=== PATIENT | male | born 1940 | race Caucasian/White ===

== ENCOUNTER 2021-03-30 07:22 | Day surgery (SDC) | payer MEDICARE, OTHER, SELFPAY ==
--- NOTE | 2021-03-25 12:24 | MHC.SHP ---
Pre-Procedural Eval Section A The patient is an INPATIENT: No The History & Physical has been completed within 30 days and I have reviewed it.: Yes Section B Chief Complaint: Cataract Right Eye Plan Diagnosis/Plan: Unchanged I have reviewed the history and physical and performed a pertinent physical examination on my patient. No changes have occurred unless specified.
[2021-03-25 12:27] VITALS: BMI 38.7
[2021-03-25 12:32] VITALS: BMI 38.7
--- NOTE | 2021-03-27 09:19 | P.CONAN_ITS ---
Documented by User: Hollie Zenaida 03/27/21 09:25 HPI - Anesthesia Eval Consult details Narrative: 80yo M for Right Cataract Extraction IOL Insertion No prev cataract on record PCP cleared Coumadin for h/o DVT [facility] Past Medical History Medical History (Updated 03/30/21 @ 08:15 by Diya Florian) COVID-19 vaccine series completed Diabetes Gout Hx of deep venous thrombosis Hx of renal calculi Low back pain Peripheral neuropathy Status post fall Surgical History Surgical History (Updated 03/30/21 @ 08:14 by Diya Florian) Hx of colonoscopy S/P vasectomy Social History Social History Smoking Status: Never smoker Use of substances other than those prescribed or required for medical reasons: No Have you been hit, kicked, punched, or otherwise hurt by someone within the past year? If so, by whom?: No Advance Directives: No Advance Directives Information Provided: No Advance Directives on File: No Meds Allergies Allergy/AdvReac Type Severity Reaction Status Date / Time cephalexin Allergy Rash Verified 03/27/21 09:58 duloxetine Allergy Rash Verified 03/27/21 09:58 niacin Allergy Muscle Pain Verified 03/27/21 09:58 gabapentin AdvReac Depression Verified 03/27/21 09:58 hydralazine AdvReac Blurry Verified 03/27/21 09:58 Vision pregabalin [From Lyrica] AdvReac Dizziness Verified 03/27/21 09:58 Qpwdsok-Tvq-Nta Reductase AdvReac Unknown Verified 03/25/21 12:27 Inhibitor Home Medications Medication Instructions Recorded Confirmed Last Taken Type alirocumab [Praluent Pen] mg SUBCUT 03/27/21 Unknown History amlodipine 1 tab PO DAILY 03/27/21 03/30/21 03/30/21 06:00 History cholecalciferol (vitamin D3) 1 cap PO DAILY 03/27/21 03/27/21 Unknown History colchicine 0.6 mg PO 03/27/21 Unknown History cyanocobalamin (vitamin B-12) 0.5 tab PO DAILY 03/27/21 03/27/21 Unknown History [Vitamin B-12] furosemide 1 tab PO DAILY 03/27/21 03/27/21 Unknown History lisinopril 1 tab PO DAILY 03/27/21 03/30/21 03/30/21 06:00 History 40 mg metformin 1 tab PO BID 03/27/21 03/27/21 Unknown History metoprolol tartrate 1 tab PO BID 03/27/21 03/30/21 03/30/21 06:00 History 50 mg oxycodone-acetaminophen 1 tab PO DAILY PRN 03/27/21 03/27/21 Unknown History warfarin PO 03/27/21 Unknown History Exam Exam Date and Time: March 27, [id number] Height,Weight and Vital Signs: Height 5 ft 6 in Weight 108.862 kg Assessment and Plan Assessment Anesthesia Assessment: Chart Reviewed Documented by User: Diya Florian 03/30/21 08:35 [facility] Past Medical History Medical History (Updated 03/30/21 @ 08:15 by Diya Florian) COVID-19 vaccine series completed Diabetes Gout Hx of deep venous thrombosis Hx of renal calculi Low back pain Peripheral neuropathy Status post fall Family History Family history of problems with anesthesia: No Surgical History Surgical History (Updated 03/30/21 @ 08:14 by Diya Florian) Hx of colonoscopy S/P vasectomy History of Problems with Anesthesia: No Social History Social History Smoking Status: Never smoker Use of substances other than those prescribed or required for medical reasons: No Have you been hit, kicked, punched, or otherwise hurt by someone within the past year? If so, by whom?: No Advance Directives: No Advance Directives Information Provided: No Advance Directives on File: No Meds Allergies Allergy/AdvReac Type Severity Reaction Status Date / Time cephalexin Allergy Rash Verified 03/27/21 09:58 duloxetine Allergy Rash Verified 03/27/21 09:58 niacin Allergy Muscle Pain Verified 03/27/21 09:58 gabapentin AdvReac Depression Verified 03/27/21 09:58 hydralazine AdvReac Blurry Verified 03/27/21 09:58 Vision pregabalin [From Lyrica] AdvReac Dizziness Verified 03/27/21 09:58 Nodbjrs-Exd-Qwf Reductase AdvReac Unknown Verified 03/25/21 12:27 Inhibitor Home Medications Medication Instructions Recorded Confirmed Last Taken Type alirocumab [Praluent Pen] mg SUBCUT 03/27/21 Unknown History amlodipine 1 tab PO DAILY 03/27/21 03/30/21 03/30/21 06:00 History cholecalciferol (vitamin D3) 1 cap PO DAILY 03/27/21 03/27/21 Unknown History colchicine 0.6 mg PO 03/27/21 Unknown History cyanocobalamin (vitamin B-12) 0.5 tab PO DAILY 03/27/21 03/27/21 Unknown History [Vitamin B-12] furosemide 1 tab PO DAILY 03/27/21 03/27/21 Unknown History lisinopril 1 tab PO DAILY 03/27/21 03/30/21 03/30/21 06:00 History 40 mg metformin 1 tab PO BID 03/27/21 03/27/21 Unknown History metoprolol tartrate 1 tab PO BID 03/27/21 03/30/21 03/30/21 06:00 History 50 mg oxycodone-acetaminophen 1 tab PO DAILY PRN 03/27/21 03/27/21 Unknown History warfarin PO 03/27/21 Unknown History Exam Height,Weight and Vital Signs: Vital Signs Temp Pulse Resp BP Pulse Ox 03/30/21 08:33 98.2 F 66 20 116/65 97 Lab Results 03/30/21 Range/Units 08:01 POC Glucose 125 H (60-115) mg/dL Airway Mallampati Class: II TM Dist: >3cm Neck ROM: Full Denture: Upper and Lower Heart: RRR Lungs: CTAB Assessment and Plan Assessment Anesthesia Assessment: Anesthesia Plan Discussed and Chart Reviewed Final Anesthetic Review NPO: Yes ASA Class: III Final Preanesthetic Review: No Changes in Pt Med Stat, Meds/Allgs Chart Reviewed, Consent Obtained/Reviewed and Anes Risks/Benef Reviewed Patient Risk: Intermediate Procedure Risk: Low Assessment/Block/Sedation in SS: Assess/Block/Sedation-SS Anesthetic Plan Anesthetic Plan: MAC: Disposition: Standard PACU
[2021-03-30 08:05] LABS: Glucose, Whole Blood 125 mg/dL (60-115)
[2021-03-30] MEDS: Lactated Ringers 500 ML 50 ML IV (08:11)
[2021-03-30] MEDS: Tetracaine HCl/PF 0.5% Oph Sol 4 ML DROPS 1 DROP EYE-RIGHT (08:15)
[2021-03-30] MEDS: Tropicamide 1 % Ophth Sol 3 ML BTL 1 DROP EYE-RIGHT ×3 (08:17→08:23)
[2021-03-30] MEDS: Phenylephrine HCL 2.5% Oph SoL 2 ML BOTTLE 1 DROP EYE-RIGHT ×3 (08:19→08:25)
[2021-03-30 08:30] VITALS: BMI 37.9
[2021-03-30 08:33] VITALS: BP 116/65; PULSE 66; RESP 20; TEMP 36.8; O2SAT 97
--- NOTE | 2021-03-30 09:10 | P.PCNO_ITS ---
Ophthalmology Procedure Procedure Date of Service: 03/30/21 Ophthalmology Viscoelastic: Healon Duet Dual Pack Pro Ophthalmology Lenses: TECNIS ZXR00 (24.5) Procedure Notes: PREOPERATIVE DIAGNOSIS: Decreased visual acuity right eye secondary to cataract POSTOPERATIVE DIAGNOSIS: Same PROCEDURE: Right cataract extraction with multifocal intraocular lens insertion SURGEON: Lane Ferguson M.D. ANESTHESIA: Topical/MAC ESTIMATED BLOOD LOSS: None COMPLICATIONS: None After obtaining informed consent, the patient was brought to the operating room suite and placed in the supine position. After adequate sedation per anesthesia, topical drops of Tetracaine were given to the right eye. The eye was then prepped and draped in the usual sterile fashion. The operating room microscope was then positioned over the operative eye and a lid speculum placed. A paracentesis was created. Viscoelastic was then instilled into the anterior chamber. A three plane incision was then created temporally, utilizing a 2.85 mm keratome. Capsulotomy forceps were then utilized to create a circular tear capsulotomy. Hydrodissection and hydrodelineation were carried out until adequate mobilization of the nucleus occurred. Phacoemulsification was then utilized to remove the dense central nuc leus followed by removal of the cortical material utilizing the automated aspiration irrigation unit. Viscoelastic was instilled into the posterior capsular bag followed by placement of a multifocal posterior chamber intraocular lens without difficulty. The residual Viscoelastic was then removed utilizing the automated IA machine. The wound was checked and found to be watertight. The patient tolerated the procedure well and the lid speculum was removed. Intracameral injection of Vigamox 0.1 mL followed by a subtenon injection of Kenalog-40 0.2 mL were administered. The patient will be seen in the a.m.
[2021-03-30 09:14] VITALS: BP 160/81; PULSE 64; RESP 16; TEMP 37; O2SAT 96
== END 2021-03-30 10:43 | disposition home or self-care (01) ==
PROVIDERS: PCP Family Medicine; Visit Provider Ophthalmology
PROC: (CPT 66984; principal; 2021-03-30 08:50)
DX: H25.11 Age-related nuclear cataract, right eye (principal); H52.4 Presbyopia; I10 Essential (primary) hypertension; E11.9 Type 2 diabetes mellitus without complications; Z91.81 History of falling; Z86.718 Personal history of other venous thrombosis and embolism; Z79.01 Long term (current) use of anticoagulants; Z79.84 Long term (current) use of oral hypoglycemic drugs; Z79.899 Other long term (current) drug therapy; Z88.0 Allergy status to penicillin
CPT/HCPCS: 66984; 82947; J2250; J3010; J3300; V2788

== ENCOUNTER 2021-04-13 08:37 | Day surgery (SDC) | payer MEDICARE, OTHER, SELFPAY ==
[2021-03-25 12:35] VITALS: BMI 38.7
--- NOTE | 2021-04-08 12:31 | P.CONAN_ITS ---
Documented by User: Hollie Estevez 04/08/21 12:31 HPI - Anesthesia Eval Consult details Narrative: 80yo M for Left Cataract Extraction IOL Insertion Right eye 5/3 with TIVA: Fent 25, Midaz 1 PCP cleared Coumadin for h/o DVT PMFSH Active Problems Active Problems: All Active Problems (Updated 03/30/21 @ 08:15 by Diya Florian) S/P vasectomy (Acute) Past Medical History Medical History (Updated 04/13/21 @ 10:08 by Diya Florian) COVID-19 vaccine series completed Diabetes Gout Hx of deep venous thrombosis Hx of renal calculi Low back pain Peripheral neuropathy Status post fall Family History Family history of problems with anesthesia: No Surgical History Surgical History Hx of colonoscopy S/P vasectomy History of Problems with Anesthesia: No Social History Social History Smoking Status: Never smoker Use of substances other than those prescribed or required for medical reasons: No Are you DNR?: No Advance Directives: No Advance Directives Information Provided: No Advance Directives on File: No Meds Allergies Allergy/AdvReac Type Severity Reaction Status Date / Time cephalexin Allergy Rash Verified 03/27/21 09:58 duloxetine Allergy Rash Verified 03/27/21 09:58 niacin Allergy Muscle Pain Verified 03/27/21 09:58 gabapentin AdvReac Depression Verified 03/27/21 09:58 hydralazine AdvReac Blurry Verified 03/27/21 09:58 Vision pregabalin [From Lyrica] AdvReac Dizziness Verified 03/27/21 09:58 Oaqocmh-Wky-Lij Reductase AdvReac Unknown Verified 03/25/21 12:27 Inhibitor Home Medications Medication Instructions Recorded Confirmed Last Taken Type alirocumab [Praluent Pen] mg SUBCUT 03/27/21 Unknown History amlodipine 1 tab PO DAILY 03/27/21 03/30/21 03/30/21 06:00 History cholecalciferol (vitamin D3) 1 cap PO DAILY 03/27/21 03/27/21 Unknown History colchicine 0.6 mg PO 03/27/21 Unknown History cyanocobalamin (vitamin B-12) 0.5 tab PO DAILY 03/27/21 03/27/21 Unknown History [Vitamin B-12] furosemide 1 tab PO DAILY 03/27/21 03/27/21 Unknown History lisinopril 1 tab PO DAILY 03/27/21 03/30/21 03/30/21 06:00 History 40 mg metformin 1 tab PO BID 03/27/21 03/27/21 Unknown History metoprolol tartrate 1 tab PO BID 03/27/21 03/30/21 03/30/21 06:00 History 50 mg oxycodone-acetaminophen 1 tab PO DAILY PRN 03/27/21 03/27/21 Unknown History warfarin PO 03/27/21 Unknown History Exam Exam Date and Time: April 08, 2021 1231 Height,Weight and Vital Signs: Height 5 ft 6 in Weight 108.862 kg Assessment and Plan Assessment Anesthesia Assessment: Chart Reviewed Documented by User: Diya Florian 04/13/21 10:11 [facility] Past Medical History Medical History (Updated 04/13/21 @ 10:08 by Diya Florain) COVID-19 vaccine series completed Diabetes Gout Hx of deep venous thrombosis Hx of renal calculi Low back pain Peripheral neuropathy Status post fall Surgical History Surgical History Hx of colonoscopy S/P vasectomy Social History Social History Smoking Status: Never smoker Use of substances other than those prescribed or required for medical reasons: No Are you DNR?: No Advance Directives: No Advance Directives Information Provided: No Advance Directives on File: No Meds Allergies Allergy/AdvReac Type Severity Reaction Status Date / Time cephalexin Allergy Rash Verified 03/27/21 09:58 duloxetine Allergy Rash Verified 03/27/21 09:58 niacin Allergy Muscle Pain Verified 03/27/21 09:58 gabapentin AdvReac Depression Verified 03/27/21 09:58 hydralazine AdvReac Blurry Verified 03/27/21 09:58 Vision pregabalin [From Lyrica] AdvReac Dizziness Verified 03/27/21 09:58 Ifplkpc-Bzf-Ewi Reductase AdvReac Unknown Verified 03/25/21 12:27 Inhibitor Home Medications Medication Instructions Recorded Confirmed Last Taken Type alirocumab [Praluent Pen] mg SUBCUT 03/27/21 Unknown History amlodipine 1 tab PO DAILY 03/27/21 03/30/21 03/30/21 06:00 History cholecalciferol (vitamin D3) 1 cap PO DAILY 03/27/21 03/27/21 Unknown History colchicine 0.6 mg PO 03/27/21 Unknown History cyanocobalamin (vitamin B-12) 0.5 tab PO DAILY 03/27/21 03/27/21 Unknown History [Vitamin B-12] furosemide 1 tab PO DAILY 03/27/21 03/27/21 Unknown History lisinopril 1 tab PO DAILY 03/27/21 03/30/21 03/30/21 06:00 History 40 mg metformin 1 tab PO BID 03/27/21 03/27/21 Unknown History metoprolol tartrate 1 tab PO BID 03/27/21 03/30/21 03/30/21 06:00 History 50 mg oxycodone-acetaminophen 1 tab PO DAILY PRN 03/27/21 03/27/21 Unknown History warfarin PO 03/27/21 Unknown History Exam Height,Weight and Vital Signs: Vital Signs Temp Pulse Resp BP Pulse Ox 04/13/21 09:53 97.8 F 60 20 142/73 H 98 Pertinent Lab Results Pertinent Lab Results: Lab Results 04/13/21 Range/Units 09:38 POC Glucose 110 (60-115) mg/dL Airway Mallampati Class: II TM Dist: >3cm Neck ROM: Full Denture: Upper and Lower Heart: RRR Lungs: CTAB Assessment and Plan Assessment Anesthesia Assessment: Anesthesia Plan Discussed and Chart Reviewed Final Anesthetic Review NPO: Yes ASA Class: III Final Preanesthetic Review: No Changes in Pt Med Stat, Meds/Allgs Chart Reviewed, Consent Obtained/Reviewed and Anes Risks/Benef Reviewed Patient Risk: Intermediate Procedure Risk: Low Assessment/Block/Sedation in SS: Assess/Block/Sedation-SS Anesthetic Plan Anesthetic Plan: MAC: Disposition: Standard PACU
--- NOTE | 2021-04-08 14:56 | MHC.SHP ---
Pre-Procedural Eval Section A The patient is an INPATIENT: No The History & Physical has been completed within 30 days and I have reviewed it.: Yes Section B Chief Complaint: Cataract Left Eye Allergies: Allergies Allergy/AdvReac Type Severity Reaction Status Date / Time cephalexin Allergy Rash Verified 03/27/21 09:58 duloxetine Allergy Rash Verified 03/27/21 09:58 niacin Allergy Muscle Pain Verified 03/27/21 09:58 gabapentin AdvReac Depression Verified 03/27/21 09:58 hydralazine AdvReac Blurry Verified 03/27/21 09:58 Vision pregabalin [From Lyrica] AdvReac Dizziness Verified 03/27/21 09:58 Uwkdbiq-Lio-Tku Reductase AdvReac Unknown Verified 03/25/21 12:27 Inhibitor Plan Diagnosis/Plan: Unchanged I have reviewed the history and physical and performed a pertinent physical examination on my patient. No changes have occurred unless specified.
[2021-04-13 09:41] LABS: Glucose, Whole Blood 110 mg/dL (60-115)
[2021-04-13 09:53] VITALS: BP 142/73; PULSE 60; RESP 20; TEMP 36.6; O2SAT 98
[2021-04-13] MEDS: Lactated Ringers 500 ML 50 ML IV (09:59)
[2021-04-13] MEDS: Tetracaine HCl/PF 0.5% Oph Sol 4 ML DROPS 1 DROP EYE-LEFT (09:59)
[2021-04-13] MEDS: Tropicamide 1 % Ophth Sol 3 ML BTL 1 DROP EYE-LEFT ×3 (10:01→10:08)
[2021-04-13] MEDS: Phenylephrine HCL 2.5% Oph SoL 2 ML BOTTLE 1 DROP EYE-LEFT ×3 (10:03→10:10)
--- NOTE | 2021-04-13 10:22 | P.PCNO_ITS ---
Ophthalmology Procedure Procedure Date of Service: 04/13/21 Ophthalmology Viscoelastic: Healon Duet Dual Pack Pro Ophthalmology Lenses: TECNIS ZXR00 (24) Procedure Notes: PREOPERATIVE DIAGNOSIS: Decreased visual acuity left eye s econdary to cataract POSTOPERATIVE DIAGNOSIS: Same PROCEDURE: Left cataract extraction with multifocal intraocular lens insertion SURGEON: Lane Ferguson M.D. ANESTHESIA: Topical/MAC ESTIMATED BLOOD LOSS: None COMPLICATIONS: None After obtaining informed consent, the patient was brought to the operation room suite and placed in the supine position. After adequate sedation per anesthesia, topical drops of Tetracaine were given to the left eye. The eye was then prepped and draped in the usual sterile fashion. The operating room microscope was then positioned over the operative eye and a lid speculum placed. A paracentesis was created. Viscoelastic was then instilled into the anterior chamber. A three plane incision was then created temporally, utilizing a 2.85 mm keratome. Capsulotomy forceps were then utilized to create a circular tear capsulotomy. Hydrodissection and hydrodelineation were carried out until adequate mobilization of the nucleus occurred. Phacoemulsification was then utilized to remove the dense central nucleus followed by removal of the cortical material utilizing the automated aspiration irrigation unit. Viscoelastic was instilled into the posterior capsular bag followed by placement of a multifocal posterior chamber intraocular lens without difficulty. The residual Viscoelastic was then removed utilizing the automated IA machine. The wound was check and found to be watertight. The patient tolerated the procedure well and the lid speculum was removed. Intracameral injection of Vigamox 0.1 mL followed by a subtenon injection of Kenalog-40 0.2 mL were administered. The patient will be seen in the a.m.
[2021-04-13 10:42] VITALS: BP 147/71; PULSE 57; RESP 18; TEMP 36.7; O2SAT 96
== END 2021-04-13 11:29 | disposition home or self-care (01) ==
PROVIDERS: PCP Family Medicine; Visit Provider Ophthalmology
PROC: (CPT 66984; principal; 2021-04-13 10:50)
DX: H25.12 Age-related nuclear cataract, left eye (principal); H54.7 Unspecified visual loss; I10 Essential (primary) hypertension; E11.9 Type 2 diabetes mellitus without complications; G62.9 Polyneuropathy, unspecified; Z79.84 Long term (current) use of oral hypoglycemic drugs; Z79.899 Other long term (current) drug therapy; Z88.8 Allergy status to other drugs, medicaments and biological substances; Z86.718 Personal history of other venous thrombosis and embolism; Z79.01 Long term (current) use of anticoagulants
CPT/HCPCS: 66984; 82947; J2250; J3010; J3300; V2788